=== PATIENT | female | born 1990 | race Hispanic/Latino ===

== ENCOUNTER 2017-10-10 07:07 | Inpatient (IN) | payer OTHER ==
[~2017-10-10] VITALS: Ht 157.5 cm; Wt 72.6 kg
[~2017-10-10 07:07] MED LIST: MULTI-DAY VITA1 EACH PO; PROGESTERONE100 M2 PO
[2017-10-10 07:39] VITALS: BP 136/90
[2017-10-10 08:00] LABS: ABSOLUTE BASOPHIL COUNT 0 /CUMM (0.0-0.2); ABSOLUTE EOSINOPHIL COUNT 0.1 /CUMM (0.0-0.7); ABSOLUTE GRANULOCYTE CT 7.1 /CUMM (1.4-6.5); ABSOLUTE LYMPH COUNT 1.6 /CUMM (1.2-3.4); ABSOLUTE MONOCYTE COUNT 0.5 /CUMM (0.10-0.60); BASOPHIL % 0.4 % (0.0-2.0); EOSINOPHIL % 0.9 % (0-5); GRANULOCYTE % 76.3 % (42.2-75.2); HEMATOCRIT 38.8 % (37-47); MEAN CORPUSCULAR HGB CONC 34.3 G/DL (33.0-37.0); MEAN CORPUSCULAR VOLUME 87.7 FL (81.0-99.0); MEAN PLATELET VOLUME 8.3 FL (7.4-10.4); PLATELET COUNT 213 /CUMM (130-400); RBC DISTRIBUTION WIDTH 12.9 % (11.5-14.5); RED BLOOD CELL CT 4.43 /CUMM (4.20-5.40); WHITE BLOOD CELL COUNT 9.3 /CUMM (4.8-10.8)
[2017-10-10] MEDS ORDERED: PRENATABS RX T1 EACH PO (08:10)
--- NOTE | 2017-10-10 09:29 | History & Physical ---
General Information and HPI MD Statement: I have seen and personally examined GIL TORRE and documented this H&P. The patient is a 26 year old female at [38] weeks and [4] days gestation who presented with a chief complaint of [active labor]. History of Present Illness: active labor; care remarkable for elevated 1 hour and 3 hour GGT wnl. Allergies/Medications Allergies: Coded Allergies: NO KNOWN ALLERGIES (NONE) (12/13/10) Home Med list Vit #76/Iron,Carb/FA (Prenatabs Rx Tablet) 29 MG IRON-1 MG TABLET 1 TAB PO DAILY (Reported) Past History heart doctor History : 3 Para: 1 Last Menstrual Period: 11/29/16 Estimated Delivery Date: 10/20/17 Past heart doctor History: non-contributory Surgical History Pertinent Surgical History: none Past Family/Social History Psychosocial History Smoking Status: Never Smoked Review of Systems Review of Systems Constitutional: Reports: no symptoms. EENTM: Reports: no symptoms. Cardiovascular: Reports: no symptoms. Respiratory: Reports: no symptoms. GI: Reports: see HPI. Genitourinary: Reports: see HPI. Musculoskeletal: Reports: see HPI. Skin: Reports: no symptoms. Neurological/Psychological: Reports: no symptoms. Hematologic/Endocrine: Reports: no symptoms. Immunologic/Allergic: Reports: no symptoms. 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 No Contractions: q2-3 Infant #1 - FHR Baseline: 140 Category: 1 Estimated Weight: 7 Presentation: cephalic Patient for Induction? No Labs Blood Type & Rh: a pos Antibody Screen: neg Hct/Hgb & Platelets #1: 36//229 Hct/Hgb & Platelets #2: 212 Rubella: imm VDRL #1: nr VDRL #2: nr HbsAg: neg HIV #1: neg HIV #2 neg 1 Hr P 3 Hr P/168/147/114 Group B Strep: neg Initial Ultrasound: wnl Anatomy Ultrasound: wnl Ultrasound for EFW: 7 Genetic Testing: neg Last 24 Hrs of Labs/Ben: Laboratory Tests 10/10/17 0845: Urine Color Pending, Urine Clarity Pending, Urine pH Pending, Ur Specific [place] Pending, Urine Protein Pending, Urine Ketones Pending, Urine Nitrite Pending, Urine Bilirubin Pending, Urine Urobilinogen Pending, Ur Leukocyte Esterase Pending, Ur Microscopic SEDIMENT EXAMINED, Urine RBC Pending, Urine Hemoglobin Pending, Urine Glucose Pending 10/10/17 0730: CBC w Diff NO MAN DIFF REQ, RBC 4.43, MCV 87.7, MCH 30.0, MCHC 34.3, RDW 12.9, MPV 8.3, Gran % 76.3 H, Lymphocytes % 17.1 L, Monocytes % 5.3, Eosinophils % 0.9, Basophils % 0.4, Absolute Granulocytes 7.1 H, Absolute Lymphocytes 1.6, Absolute Monocytes 0.5, Absolute Eosinophils 0.1, Absolute Basophils 0 Assessment/Plan Assessment/Plan: active labor at term exp mgmt As Ranked By This Provider Problem List: 1. Core Measures Venous Thromboembolism VTE Risk Factors / No Mechanical VTE Prophylaxis d/t LowRisk-No Interven Req'd No VTE Pharm Prophylaxis d/t Bleeding (Active)
--- NOTE | 2017-10-10 12:11 | Labor & Delivery Summary ---
Delivery Summary Vaginal Delivery: Vaginal: vertex Episiotomy/Lacerations: Episiotomy/Lacerations: lac Type: 2nd degree Repair: 3-0 layered Anesthesia: local Placenta: Placenta: spontanteous, normal, 3 vessel Anesthesia: none Baby's Weight: 7-10 Apgars - 1 Min: 9 Apgars - 5 Min: 9
[2017-10-11 08:18] LABS: ABSOLUTE BASOPHIL COUNT 0 /CUMM (0.0-0.2); ABSOLUTE EOSINOPHIL COUNT 0.1 /CUMM (0.0-0.7); RBC DISTRIBUTION WIDTH 13.1 % (11.5-14.5)
[2017-10-11 08:52] LABS: ABSOLUTE GRANULOCYTE CT 9.1 /CUMM (1.4-6.5); ABSOLUTE MONOCYTE COUNT 0.6 /CUMM (0.10-0.60); BASOPHIL % 0.3 % (0.0-2.0); EOSINOPHIL % 0.7 % (0-5); GRANULOCYTE % 76.9 % (42.2-75.2); MEAN CORPUSCULAR HGB 29.8 PG (27.0-31.0); MEAN CORPUSCULAR HGB CONC 33.7 G/DL (33.0-37.0); MEAN CORPUSCULAR VOLUME 88.6 FL (81.0-99.0); MEAN PLATELET VOLUME 8.9 FL (7.4-10.4); PLATELET COUNT 184 /CUMM (130-400); RED BLOOD CELL CT 3.56 /CUMM (4.20-5.40); WHITE BLOOD CELL COUNT 11.8 /CUMM (4.8-10.8)
[2017-10-11 08:57] LABS: HEMATOCRIT 31.5 % (37-47)
--- NOTE | 2017-10-11 18:44 | PN- Post Delivery/GYN ---
Subjective Subjective: no c/o Review of Systems: neg Objective Last 24 Hrs of Vital Signs/I&O ff ext nt Assessment/Plan Assessment/Plan ppd1 s/p stable Problem List: 1.
[2017-10-12] MEDS ORDERED: IBUPROFEN800 M1 PO (08:45)
== END 2017-10-12 10:33 | DRG 560 ==
LOC: CBCO 07:07 → GNO 07:27 → CBCO 10-20 08:00
PROVIDERS: Obstetrics & Gynecology
PROC: 0KQM0ZZ Repair Perineum Muscle, Open Approach (ICD-10-PCS; principal; 2017-10-10)
PROC: 10E0XZZ Delivery of Products of Conception, External Approach (ICD-10-PCS; principal; 2017-10-10)
DX: O70.1 Second degree perineal laceration during delivery (principal); Z3A.38 38 weeks gestation of pregnancy; Z37.0 Single live birth
CPT/HCPCS: GNOS; 36415; 81001; 84112; 87086; J1885; J7120